=== PATIENT | female | born 1995 | race Caucasian/White ===

== ENCOUNTER 2017-08-29 21:09 | Emergency (ER) | payer BC ==
[2017-08-29 21:27] VITALS: BP 117/85
[2017-08-29 22:22] LABS: CHLORIDE,CL 100 mmol/L (98-107); SODIUM,NA 137 mmol/L (136-145)
--- NOTE | 2017-08-29 22:46 | EDM.PDOC ---
ED HPI GENERAL MEDICAL PROBLEM - General Chief Complaint: General Stated Complaint: UTI SYMPTOMS Time Seen by Provider: 08/29/17 21:30 Source of Information: Reports: Patient History Limitations: Reports: No Limitations - History of Present Illness INITIAL COMMENTS - FREE TEXT/NARRATIVE: Patient is a 21-year-old with long history of diabetes type 1 patient is controlled with insulin pump and DEXA scan at this time patient states that she was seen last week in the doctor's office with dryness of the mouth was examined and felt that she had a UTI she was placed on antibiotics for 3 days but her symptoms didn't improve she developed some left lower quadrant pain x- rays of the abdomen revealed possible stone she has been pushing fluids but her symptoms have not resolved today she came in with similar symptoms we did lab work her white count was normal her panel 6 was essentially normal her hemoglobin A1c was a little elevated at 8.2 we will go ahead and do a UA UA revealed 20-25 RBCs high-power negative leukocytes esterase few bacteria's at this time we'll go ahead and do a TSH but I cannot really find a source of her dry mouth she is only on insulin and no other medication Duration: Day(s):, Intermittent Location: Reports: Abdomen, Back Quality: Reports: Ache Severity: Mild Improves with: Reports: Eating Associated Symptoms: Reports: No Other Symptoms - Related Data Allergies Allergy/AdvReac Type Severity Reaction Status Date / Time Penicillins Allergy Intermediate Rash Verified 08/29/17 21:28 Home Meds: Home Meds Subcutaneous Insulin Pump [Insulin Pump] 1 cassette SUBCUT ASDIRECTED 10/11/13 [ History] metroNIDAZOLE [Metronidazole] 70 gm VG DAILY 06/03/15 [History] Tamsulosin HCl [Flomax] 0.4 mg PO BEDTIME #7 cap.er.24h 06/04/15 [Rx] Past Medical History HEENT History: Reports: None. Denies: Allergic Rhinitis, Hard of Hearing, Impaired Vision, Retinal Detachment Cardiovascular History: Reports: None Respiratory History: Reports: None Gastrointestinal History: Reports: Chronic Constipation Genitourinary History: Reports: Renal Calculus MOTH PROOFER History: Reports: None Musculoskeletal History: Reports: Fracture Neurological History: Reports: None Psychiatric History: Reports: None Endocrine/Metabolic History: Reports: Diabetes, Type I Hematologic History: Reports: None Immunologic History: Reports: None Oncologic (Cancer) History: Reports: None Dermatologic History: Reports: Other (See Below) Other Dermatologic History: acne vulgaris currently under therapy - Infectious Disease History Infectious Disease History: Reports: None - Past Surgical History Head Surgeries/Procedures: Reports: None HEENT Surgical History: Reports: None, Oral Surgery Cardiovascular Surgical History: Reports: None Respiratory Surgical History: Reports: None Neurological Surgical History: Reports: None Musculoskeletal Surgical History: Reports: None Oncologic Surgical History: Reports: None - Past Imaging History Past Imaging History: Reports: Ultrasound (pelvic ultrasound on 06/02/15) Social & Family History - Tobacco Use Smoking Status *Q: Never Smoker Second Hand Smoke Exposure: No - Caffeine Use Caffeine Use: Reports: Coffee - Living Situation & Occupation Living situation: Reports: Single, with Family Occupation: Employed ED ROS GENERAL - Review of Systems Review Of Systems: See Below Constitutional: Reports: No Symptoms HEENT: Reports: No Symptoms Respiratory: Reports: No Symptoms Cardiovascular: Reports: No Symptoms Endocrine: Reports: No Symptoms GI/Abdominal: Reports: No Symptoms : Reports: Frequency Musculoskeletal: Reports: No Symptoms Skin: Reports: No Symptoms Neurological: Reports: No Symptoms Psychiatric: Reports: No Symptoms ED EXAM, GENERAL - Physical Exam Exam: See Below Exam Limited By: No Limitations General Appearance: Alert, WD/WN, No Apparent Distress Ears: Normal External Exam, Normal Canal, Hearing Grossly Normal, Normal TMs Ear Exam: Bilateral Ear: Auricle Normal, Canal Normal, TM normal Nose: Normal Inspection, Normal Mucosa, No Blood Throat/Mouth: Normal Inspection Head: Atraumatic, Normocephalic Neck: Normal Inspection, Supple, Non-Tender, Full Range of Motion Respiratory/Chest: No Respiratory Distress, Lungs Clear, Normal Breath Sounds, No Accessory Muscle Use, Chest Non-Tender Cardiovascular: Normal Peripheral Pulses, Regular Rate, Rhythm, No Edema, No Gallop, No JVD, No Murmur, No Rub GI/Abdominal: Normal Bowel Sounds, Soft, Non-Tender, No Organomegaly, No Distention, No Abnormal Bruit, No Mass (Female) Exam: Deferred Rectal (Female) Exam: Normal Exam, Normal Rectal Tone Back Exam: CVA Tenderness (L) Neurological: Alert, Oriented, CN II-XII Intact, Normal Cognition, Normal Gait, Normal Reflexes, No Motor/Sensory Deficits Psychiatric: Normal Affect, Normal Mood Skin Exam: Warm, Dry, Intact, Normal Color, No Rash Course - Vital Signs Last Recorded V/S: Last Vital Signs Temp 98.8 F 08/29/17 21:14 Pulse 86 08/29/17 21:14 Resp 16 08/29/17 21:14 BP 117/85 08/29/17 21:14 Pulse Ox 100 08/29/17 21:14 - Orders/Labs/Meds Orders: Active Orders 24 hr Category Date Time Status TSH ULTRASENSITIVE [CHEM] Stat Lab 08/29/17 22:31 Ordered UA W/MICROSCOPIC [URIN] Stat Lab 08/29/17 20:40 Ordered Labs: Laboratory Tests 08/29/17 08/29/17 08/29/17 Range/Units 20:40 22:05 22:05 WBC 7.1 (4.0-10.2) K/uL RBC 4.63 (3.77-5.09) M/uL Hgb 14.1 (11.7-15.5) g/dL Hct 40.9 (34.0-46.0) % MCV 88.3 (84.0-98.0) fL MCH 30.5 (28.2-33.3) pg MCHC 34.5 (31.7-36.0) g/dL RDW 12.6 (11.2-14.1) % Plt Count 279 (150-350) K/uL Neut % (Auto) 60.1 (45.0-80.0) % Lymph % (Auto) 29.7 (10.0-50.0) % [place] % (Auto) 8.6 (2.0-14.0) % Eos % (Auto) 1.0 (0.0-5.0) % Baso % (Auto) 0.6 (0.0-2.0) % Neut # (Auto) 4.24 (1.40-7.00) K/uL Lymph # (Auto) 2.10 (0.50-3.50) K/uL [place] # (Auto) 0.61 (0.00-1.00) K/uL Eos # (Auto) 0.07 (0.00-0.50) K/uL Baso # (Auto) 0.04 (0.00-0.20) K/uL Sodium 137 (136-145) mmol/L Potassium 4.0 (3.5-5.1) mmol/L Chloride 100 (98-107) mmol/L Carbon Dioxide 27.3 (21.0-32.0) mmol/L BUN 14 (7-18) mg/dL Creatinine 0.74 (0.51-1.17) mg/dL Est Cr Clr Drug Dosing 91.51 mL/min Estimated GFR (MDRD) > 60 mL/min Glucose 152 H (74-106) mg/dL Hemoglobin A1c (4.3-5.7) % Calcium 10.0 (8.5-10.1) mg/dL Specimen Type Urinvoid Urine Color Light yellow Urine Appearance Clear Urine pH 5.5 (5.0-9.0) Ur Specific [place] <= 1.005 (1.005-1.030) Urine Protein Negative (NEGATIVE) mg/dL Urine Glucose (UA) Negative (NEGATIVE) mg/dL Urine Ketones Negative (NEGATIVE) mg/dL Urine Occult Blood Large H (NEGATIVE) Urine Nitrite Negative (NEGATIVE) Urine Bilirubin Negative (NEGATIVE) Urine Urobilinogen 0.2 (0.2-1.0) E.U./dL Ur Leukocyte Esterase Negative (NEGATIVE) Urine RBC 10-20 H /HPF Urine WBC 0-5 /HPF Ur Epithelial Cells Few /LPF Urine Bacteria Few (NONE TO FEW) /HPF 08/29/17 Range/Units 22:05 WBC (4.0-10.2) K/uL RBC (3.77-5.09) M/uL Hgb (11.7-15.5) g/dL Hct (34.0-46.0) % MCV (84.0-98.0) fL MCH (28.2-33.3) pg MCHC (31.7-36.0) g/dL RDW (11.2-14.1) % Plt Count (150-350) K/uL Neut % (Auto) (45.0-80.0) % Lymph % (Auto) (10.0-50.0) % [place] % (Auto) (2.0-14.0) % Eos % (Auto) (0.0-5.0) % Baso % (Auto) (0.0-2.0) % Neut # (Auto) (1.40-7.00) K/uL Lymph # (Auto) (0.50-3.50) K/uL [place] # (Auto) (0.00-1.00) K/uL Eos # (Auto) (0.00-0.50) K/uL Baso # (Auto) (0.00-0.20) K/uL Sodium (136-145) mmol/L Potassium (3.5-5.1) mmol/L Chloride (98-107) mmol/L Carbon Dioxide (21.0-32.0) mmol/L BUN (7-18) mg/dL Creatinine (0.51-1.17) mg/dL Est Cr Clr Drug Dosing mL/min Estimated GFR (MDRD) mL/min Glucose (74-106) mg/dL Hemoglobin A1c 8.2 H (4.3-5.7) % Calcium (8.5-10.1) mg/dL Specimen Type Urine Color Urine Appearance Urine pH (5.0-9.0) Ur Specific [place] (1.005-1.030) Urine Protein (NEGATIVE) mg/dL Urine Glucose (UA) (NEGATIVE) mg/dL Urine Ketones (NEGATIVE) mg/dL Urine Occult Blood (NEGATIVE) Urine Nitrite (NEGATIVE) Urine Bilirubin (NEGATIVE) Urine Urobilinogen (0.2-1.0) E.U./dL Ur Leukocyte Esterase (NEGATIVE) Urine RBC /HPF Urine WBC /HPF Ur Epithelial Cells /LPF Urine Bacteria (NONE TO FEW) /HPF Meds: Medications Discontinued Medications Generic Name Dose Route Start Last Admin Trade Name Freq PRN Reason Stop Dose Admin Lorazepam 1 mg 08/29/17 22:32 Ativan IM 08/29/17 22:33 ONETIME ONE Departure - Departure Time of Disposition: 23:15 Disposition: Home, Self-Care 01 Condition: Fair Clinical Impression: Kidney stone, UTI, Urinary tract infectious disease UTI (urinary tract infection) Qualifiers: Urinary tract infection type: acute cystitis Hematuria presence: with hematuria Qualified Code(s): N30.01 - Acute cystitis with hematuria - Discharge Information Referrals: Shilpa Gardner PA [Primary Care Provider] - Care Plan Goals: At this time we think that she has acute cystitis will start her on Septra DS 1 tablet twice a day for 7 days plus Pyridium for her pain 200 mg 3 times a day for 2 days follow-up with her primary in clinic - My Orders Last 24 Hours: My Active Orders 08/29/17 20:40 UA W/MICROSCOPIC [URIN] Stat 08/29/17 22:31 TSH ULTRASENSITIVE [CHEM] Stat - Assessment/Plan Last 24 Hours: My Active Orders 08/29/17 20:40 UA W/MICROSCOPIC [URIN] Stat 08/29/17 22:31 TSH ULTRASENSITIVE [CHEM] Stat
[2017-08-29] MEDS: LORazepam 2 MG/ML SDV IM ONE (23:03)
[2017-08-29] MEDS: Phenazopyridine 95 MG Tab PO ONE (23:09)
[2017-08-29] MEDS: Sulfamethoxazole/Trimethoprim 800-160 MG Tab PO ONE (23:09)
== END 2017-08-29 23:30 | disposition home or self-care (01) ==
LOC: LL.ED 21:09
DX: N30.01 Acute cystitis with hematuria (principal); N20.0 Calculus of kidney; E10.9 Type 1 diabetes mellitus without complications; Z88.0 Allergy status to penicillin; Z79.899 Other long term (current) drug therapy
CPT/HCPCS: 36415; 80048; 81001; 83036; 84439; 84443; 84481; 85025; 87086; 99283; A9270

== ENCOUNTER 2017-08-31 09:00 | Emergency (ER) | payer BC ==
[2017-08-31 09:08] VITALS: BP 132/84
--- NOTE | 2017-08-31 10:01 | EDM.PDOC ---
ED HPI GENERAL MEDICAL PROBLEM - General Chief Complaint: General Stated Complaint: Urine frequency Time Seen by Provider: 08/31/17 09:15 Source of Information: Reports: Patient, Old Records History Limitations: Reports: No Limitations - History of Present Illness INITIAL COMMENTS - FREE TEXT/NARRATIVE: Patient is a 21-year-old who was seen with similar symptoms as before dry mouth unable to tolerate antibiotics she says she has a burning sensation and was tachycardic at home couldn't sleep for a while tenderness to 3:00 at this time she was us assess Onset: Sudden, Other (few days) Duration: Day(s):, Improving Location: Reports: Chest (Tachycardia burning sensation) Severity: Mild Improves with: Reports: Rest Worsens with: Reports: Medication Context: Reports: Other (Medical) Chest Pain Score (Numeric/FACES): 5 - Related Data Allergies Allergy/AdvReac Type Severity Reaction Status Date / Time Penicillins Allergy Intermediate Rash Verified 08/29/17 21:28 Home Meds: Home Meds Subcutaneous Insulin Pump [Insulin Pump] 1 cassette SUBCUT ASDIRECTED 10/11/13 [ History] metroNIDAZOLE [Metronidazole] 70 gm VG DAILY 06/03/15 [History] Insulin Aspart [NovoLOG] 1 units SUBCUT ASDIRECTED PRN 08/31/17 [History] Phenazopyridine [Pyridium] 100 mg PO TID PRN 08/31/17 [History] Past Medical History HEENT History: Reports: None Cardiovascular History: Reports: None Respiratory History: Reports: None Gastrointestinal History: Reports: Chronic Constipation Genitourinary History: Reports: Renal Calculus ART INSTALLER History: Reports: None Musculoskeletal History: Reports: Fracture Neurological History: Reports: None Psychiatric History: Reports: None Endocrine/Metabolic History: Reports: Diabetes, Type I Hematologic History: Reports: None Immunologic History: Reports: None Oncologic (Cancer) History: Reports: None Dermatologic History: Reports: Other (See Below) Other Dermatologic History: acne vulgaris currently under therapy - Infectious Disease History Infectious Disease History: Reports: None - Past Surgical History Head Surgeries/Procedures: Reports: None HEENT Surgical History: Reports: None, Oral Surgery Cardiovascular Surgical History: Reports: None Respiratory Surgical History: Reports: None Neurological Surgical History: Reports: None Musculoskeletal Surgical History: Reports: None Oncologic Surgical History: Reports: None - Past Imaging History Past Imaging History: Reports: Ultrasound (pelvic ultrasound on 06/02/15) Social & Family History - Tobacco Use Smoking Status *Q: Never Smoker Second Hand Smoke Exposure: No - Caffeine Use Caffeine Use: Reports: Coffee, Tea - Recreational Drug Use Recreational Drug Use: No - Living Situation & Occupation Living situation: Reports: Single, with Family Occupation: Employed ED ROS GENERAL - Review of Systems Review Of Systems: See Below Constitutional: Reports: No Symptoms HEENT: Reports: Other (Dry mouth) Respiratory: Reports: No Symptoms Cardiovascular: Reports: No Symptoms Endocrine: Reports: No Symptoms GI/Abdominal: Reports: No Symptoms : Reports: No Symptoms Musculoskeletal: Reports: No Symptoms Skin: Reports: No Symptoms Neurological: Reports: No Symptoms Psychiatric: Reports: No Symptoms Hematologic/Lymphatic: Reports: No Symptoms Immunologic: Reports: No Symptoms ED EXAM, GENERAL - Physical Exam Exam: See Below Exam Limited By: No Limitations General Appearance: Alert, WD/WN, No Apparent Distress Eye Exam: Bilateral Eye: EOMI, PERRL Ears: Normal External Exam, Normal Canal, Hearing Grossly Normal, Normal TMs Ear Exam: Bilateral Ear: Auricle Normal, Canal Normal, TM normal Nose: Normal Inspection, Normal Mucosa, No Blood Throat/Mouth: Normal Inspection, Normal Oropharynx, Other (Mucosa dry) Head: Atraumatic, Normocephalic Neck: Normal Inspection, Supple, Non-Tender, Full Range of Motion Respiratory/Chest: No Respiratory Distress, Lungs Clear, Normal Breath Sounds, No Accessory Muscle Use, Chest Non-Tender Cardiovascular: Normal Peripheral Pulses, Regular Rate, Rhythm, No Edema, No Gallop, No JVD, No Murmur, No Rub GI/Abdominal: Normal Bowel Sounds, Soft, Non-Tender, No Organomegaly, No Distention, No Abnormal Bruit, No Mass Back Exam: Normal Inspection, Full Range of Motion, NT Extremities: Normal Inspection, Normal Range of Motion, Non-Tender, Normal Capillary Refill, No Pedal Edema Neurological: Alert, Oriented, CN II-XII Intact, Normal Cognition, Normal Gait, Normal Reflexes, No Motor/Sensory Deficits Psychiatric: Normal Affect, Normal Mood Skin Exam: Warm, Dry, Intact, Normal Color, No Rash Course - Vital Signs Last Recorded V/S: Last Vital Signs Temp 98.4 F 08/31/17 09:07 Pulse 82 08/31/17 09:07 Resp 18 08/31/17 09:07 BP 132/84 08/31/17 09:07 Pulse Ox 98 08/31/17 09:07 - Orders/Labs/Meds Orders: Active Orders 24 hr Category Date Time Status CULTURE URINE [RM] Stat Lab 08/31/17 09:50 Ordered UA W/MICROSCOPIC [URIN] Stat Lab 08/31/17 09:16 Ordered Labs: Laboratory Tests 08/31/17 Range/Units 09:16 Specimen Type Urinvoid Urine Color Dark yellow Urine Appearance Clear Urine pH 6.5 (5.0-9.0) Ur Specific [place] 1.015 (1.005-1.030) Urine Protein Negative (NEGATIVE) mg/dL Urine Glucose (UA) Negative (NEGATIVE) mg/dL Urine Ketones Negative (NEGATIVE) mg/dL Urine Occult Blood Trace-intact H (NEGATIVE) Urine Nitrite Positive H (NEGATIVE) Urine Bilirubin Negative (NEGATIVE) Urine Urobilinogen 1.0 (0.2-1.0) E.U./dL Ur Leukocyte Esterase Negative (NEGATIVE) Urine RBC 5-10 H /HPF Urine WBC 0-5 /HPF Ur Epithelial Cells Few /LPF Urine Bacteria Moderate H (NONE TO FEW) /HPF Departure - Departure Time of Disposition: 10:14 Disposition: Home, Self-Care 01 Condition: Fair Clinical Impression: Cystitis Adverse effects of medication Qualifiers: Encounter type: subsequent encounter Qualified Code(s): T50.905D - Adverse effect of unspecified drugs, medicaments and biological substances, subsequent encounter - Discharge Information *PRESCRIPTION DRUG MONITORING PROGRAM REVIEWED*: No *COPY OF PRESCRIPTION DRUG MONITORING REPORT IN PATIENT SURESH: Yes Instructions: Urinary Tract Infection, Adult Referrals: Shilpa Gardner PA [Primary Care Provider] - Care Plan Goals: At this time patient was changed from Septra DS 2 Cipro 250 3 times a day 7 days We will schedule her for a thyroid ultrasound and she should follow-up with her guest services associate at the end of September - My Orders Last 24 Hours: My Active Orders 08/31/17 09:16 UA W/MICROSCOPIC [URIN] Stat 08/31/17 09:50 CULTURE URINE [RM] Stat - Assessment/Plan Last 24 Hours: My Active Orders 08/31/17 09:16 UA W/MICROSCOPIC [URIN] Stat 08/31/17 09:50 CULTURE URINE [RM] Stat
== END 2017-08-31 10:25 | disposition home or self-care (01) ==
LOC: LL.ED 09:00
DX: N30.90 Cystitis, unspecified without hematuria (principal); T36.95XD Adverse effect of unspecified systemic antibiotic, subsequent encounter; Z88.0 Allergy status to penicillin; E10.9 Type 1 diabetes mellitus without complications; Z79.899 Other long term (current) drug therapy; Z79.4 Long term (current) use of insulin
CPT/HCPCS: 81001; 87086; 87088; 99283